=== PATIENT | male | born 1970 | race Caucasian/White ===

== ENCOUNTER 2017-05-15 13:44 | Emergency (ER) | payer OTHER ==
[2017-05-15 13:51] VITALS: TEMP 98.2
[2017-05-15] MEDS ORDERED: DEXAMETHASONE 4 MG TAB PO ONE (14:51)
--- NOTE | 2017-05-15 15:10 | EDPHY ---
General Narrative: CHIEF COMPLAINT: Right leg pain HISTORY OF PRESENT ILLNESS: Patient complains of several days history of right buttock and leg pain. This started abruptly after stretching several weeks ago. It is in the right buttock and radiates down the right leg. [id number] 1st. Now moderate to severe. Worse with stretching activity. Minimal improvement rest. Minimal improved with pain medication topical lidocaine patches. No saddle anesthesia. No incontinence of bowel or bladder. He feels as though he has not urinated enough today for the amount of water he has ingested today. No trauma or injury. He was seen by a provider at his primary care office last week. He was diagnosed with sciatica and treated with physical therapy. No other associated complaints or modifying factors. REVIEW OF SYSTEMS: Ten systems reviewed and are negative unless otherwise noted in the HPI PCP: [facility] SPECIALISTS: None PAST MEDICAL HISTORY: Psoriasis PAST SURGICAL HISTORY: Appendectomy 2016 SOCIAL HISTORY: Nonsmoker FAMILY HISTORY: Noncontributory EXAMINATION General Appearance: Alert, no distress Head: normocephalic, atraumatic Eyes: Pupils equal and round, no conjunctival pallor or injection ENT, Mouth: Mucous membranes moist Neck: Normal inspection, supple, non-tender Respiratory: No retractions or distress Cardiovascular: Regular rate. Symmetric DP pulses 2+. Symmetric PT pulses 2+. Back: Soft tissue tenderness over the right SI joint. No tenderness midline. No crepitus, step-off or deformity. Neurological: A&O, nonfocal, normal gait. Strength is 5/5 in the lower extremities involving the knees and ankles. Patellar reflexes symmetric. Normal light sensation on the dorsum of the foot. Normal proprioception of the great toes. No footdrop Skin: Warm and dry, no rash. No petechiae or purpura Extremities: Nontender, no pedal edema Psychiatric: Mood and affect normal DIFFERENTIAL DIAGNOSES: Including but not limited to sciatica, lumbar radiculopathy, DVT, muscular strain, muscle spasm, muscle cramps MDM: 2:50 p.m. Likely sciatica with no evidence of acute cord compression. Complaints of pain and paresthesia on the right leg. Examination reveals neuro intact and excellent strength. He has some mild urinary complaints, thus I have ordered a post void residual. 3:30 p.m. Patient had a postvoid residual at 270 mL per RN. I have re-evaluated the patient. We discussed this at length. While I do not have concern for acute cord compression or cauda equina at this time, I would like him to be ambulated to see if he can do so without difficulty. 3:40 p.m. Patient has ambulated in eye witnesses. He is antalgic but steady gait. Examination while standing, his hip flexors remain intact bilaterally with without weight-bearing. Strength remains symmetric in lower extremities. I did offer an MRI of the lumbar spine but he has declined. I do feel it is reasonable to discharge home with symptomatic medications with strict return to ED precautions. We discussed going home with short burst treatment with steroid , muscle relaxant and his previously prescribed pain medication. Strict ED precautions for worsening pain, numbness, tingling, weakness, incontinence of bowel or bladder, retention of bowel or bladder. He would like to attempt this plan. I would like him to return within 24-48 hours if he does not start to improve or sooner if he worsens during that timeframe. He is comfortable with this plan and discharged home stable condition - History Smoking Status: Never smoked - Objective Vital Signs: Initial Vital Signs Temperature (C) 98.2 F 05/15/17 13:48 Heart Rate 72 05/15/17 13:48 Respiratory Rate 17 05/15/17 13:48 Blood Pressure 102/81 H 05/15/17 13:48 O2 Sat (%) 93 05/15/17 13:48 O2 Delivery Mode Room Air Allergies/Adverse Reactions: erythromycin lactobionate [From Erythrocin] Allergy (Intermediate, Verified 13:46) Rash penicillin V potassium [From Pen-Vee K] Allergy (Intermediate, Verified 13:46) Rash adhesive tape Allergy (Uncoded 01/06/14 22:15) Home Medications: Medication Instructions Recorded Emtricitabine/Tenofovir [TRUVADA 1 each PO HS 10/12/12 200 MG-300 MG TABLET] Cyclobenzaprine [Flexeril 10 MG 10 mg PO TID PRN #15 tab 05/15/17 (*)] Oxycodone HCl 05/15/17 predniSONE [Deltasone] 60 mg PO DAILY #12 tablet 05/15/17 Medications Given: Discontinued Medications Dexamethasone (Decadron) 8 mg PO EDNOW ONE Stop: 05/15/17 14:52 Last Admin: 05/15/17 15:16 Dose: 8 mg Departure - Departure Disposition: Home, Routine, Self-Care Clinical Impression: Sciatica, right side Condition: Good Instructions: Sciatica (ED), Piriformis Syndrome (ED), Lower Back Exercises (ED ) Additional Instructions: 1. Continue your previously prescribed Percocet as needed as discussed 2. Flexeril 1 tablet by mouth every 8 hours as needed 3. Steroid as prescribed starting tomorrow for 4 more days 4. Strict ED precautions as discussed for worsening pain, numbness, tingling, weakness, incontinence of bowel or bladder, retention of bowel or bladder Referrals: JANNIE SANDOVAL [Other] - As per Instructions Prescriptions: Cyclobenzaprine [Flexeril 10 MG (*)] 10 mg PO TID PRN #15 tab PRN Reason: Spasms predniSONE [Deltasone] 60 mg PO DAILY #12 tablet
[2017-05-15 16:00] VITALS: BP 113/83; PULSE 67; RESP 16; O2SAT 96
== END 2017-05-15 15:58 | disposition home or self-care (01) ==
DX: M54.31 Sciatica, right side (principal)

== ENCOUNTER 2018-04-26 02:28 | Observation (INO) | payer OTHER ==
[2018-04-26] MEDS ORDERED: VANCOMYCIN HCL/NORMAL SALINE 250 ML IV ONE (02:48)
[2018-04-26] MEDS ORDERED: NS 1,000 ML IV ONE (02:48)
--- NOTE | 2018-04-26 02:50 | EDPHY ---
H & P Time Seen by Provider: 04/26/18 02:49 HPI/ROS: HPI CHIEF COMPLAINT: Worsening facial cellulitis. HISTORY OF PRESENT ILLNESS: Patient is a 48-year-old male, presents emergency room with worsening facial cellulitis. He states this initially all started on Saturday or 5 days ago with not feeling well. He had some facial redness and swelling the progressed on Saturday he went to urgent care was placed on clindamycin. Yesterday he was seen by his primary care doctor and Infectious Disease at [facility] where he typically gets care. He was placed on Augmentin and Bactrim. He has been taking this however tonight he reports that feels as if the facial swelling is getting worse. And spreading from the right-sided face to left side of his face. No pain with eye movement. Patient does report that he had blood work done as well as CT scan of his face. He is unsure exactly of the results of the CT scan. Past Medical History: High-grade dysplasia. Psoriasis. Past Surgical History: appendectomy Social History: Denies drugs alcohol tobacco. Family History: Noncontributory ROS REVIEW OF SYSTEMS: 10 Systems were reviewed and negative with the exception of the elements mentioned in the history of present illness. Exam Constitutional nontoxic appearing triage nursing summary reviewed, vital signs reviewed, awake/alert. Vital signs reviewed and stable Eyes face : Swelling mild noted around nasal bridge and periorbital bilaterally with some redness. HENT normal inspection, atraumatic, moist mucus membranes, no epistaxis, neck supple/ no meningismus, no raccoon eyes. Respiratory clear to auscultation bilaterally, normal breath sounds, no respiratory distress, no wheezing. Cardiovascular rate normal, regular rhythm, no murmur, no edema, distal pulses normal. Gastrointestinal soft, non-tender, no rebound, no guarding, normal bowel sounds, no distension, no pulsatile mass. Genitourinary no CVA tenderness. Musculoskeletal no midline vertebral tenderness, full range of motion, no calf swelling, no tenderness of extremities, no meningismus, good pulses, neurovascularly intact. Skin pink, warm, & dry, no rash, skin atraumatic. Neurologic awake, alert and oriented x 3, AAOx3, moves all 4 extremities equally, motor intact, sensory intact, CN II-XII intact, normal cerebellar, normal vision, normal speech. Psychiatric normal mood/affect. Heme/Lymph/Immune no lymphadenopathy. Differential Diagnosis: Includes but is not limited to in a particular order facial cellulitis, sepsis, bacteremia, deep space infection Medical Decision Making: Plan for this patient will try to review his outside records, IV will be established blood draw, blood cultures, lactic acid, inflammatory markers, IV vancomycin, patient need to be admitted the hospital for worsening facial cellulitis. Re-evaluation: Outside labs reviewed patient pulled these up on [place]. [place] [address], ESR was 6, CRP 123. Outside CT scan obtain CT face with IV contrast this was done yesterday at 2:30 a.m. In the afternoon. The results were faxed over To me. The final impression shows diffuse right facial and preseptal periorbital cellulitis which also extends into the frontal scalp no retrobulbar are intra her: All extension of inflammation no abscess. 0409: Spoke with the hospitalist service Dr. Sawyer agrees to admit. Patient's lab work reviewed. ESR 10 here. CRP in the 60s. Down from 123. White count 43615 down from 12,000 thousand. Source: Patient - Personal History Tetanus Vaccine Date: < 10 years - Medical/Surgical History Hx Asthma: No Hx Chronic Respiratory Disease: No Hx Diabetes: No Hx Cardiac Disease: No Hx Renal Disease: No Hx Cirrhosis: No Hx Alcoholism: No Hx HIV/AIDS: No Hx Splenectomy or Spleen Trauma: No Other PMH: HPV - Social History Smoking Status: Never smoked Constitutional: Initial Vital Signs Temperature (C) 37.2 C 04/26/18 02:49 Heart Rate 92 04/26/18 02:49 Respiratory Rate 16 04/26/18 02:49 Blood Pressure 133/88 H 04/26/18 02:49 O2 Sat (%) 91 L 04/26/18 02:49 O2 Delivery Mode Room Air Allergies/Adverse Reactions: erythromycin lactobionate [From Erythrocin] Allergy (Intermediate, Verified 13:46) Rash penicillin V potassium [From Pen-Vee K] Allergy (Intermediate, Verified 13:46) Rash adhesive tape Allergy (Uncoded 01/06/14 22:15) Home Medications: Medication Instructions Recorded Acetaminophen [Tylenol 325mg (*)] 325 - 650 mg PO Q6 PRN 04/26/18 Amoxicillin/Potassium Clav 1 each PO BID 04/26/18 [Amox-Clav 875-125 mg Tablet] Emtricitabine/Tenofovir [Truvada 1 tab PO DAILY16 04/26/18 200MG/300MG (*)] Ibuprofen [Motrin (*)] 200 - 400 mg PO Q6H PRN 04/26/18 Melatonin [Melatonin 3 MG (*)] 3 mg PO HS 04/26/18 diphenhydrAMINE [Benadryl 25 MG 25 - 50 mg PO Q6H PRN 04/26/18 (*)] Acetaminophen [Tylenol 325mg (*)] 650 mg PO Q4HRS PRN tab 04/27/18 Ibuprofen [Motrin (*)] 600 mg PO Q8HRS PRN tab 04/27/18 diphenhydrAMINE [Benadryl 25 MG 25 - 50 mg PO Q6HRS PRN cap 04/27/18 (*)] hydrOXYzine HCL [hydrOXYzine HCL 25 mg PO Q6 PRN #20 tab 04/27/18 (RX)] Medical Decision Making - Data Points Laboratory Results: Laboratory Results 04/26/18 03:11 04/26/18 03:11 Microbiology Results: MICROBIOLOGY 04/26/18 03:25 Blood Blood Culture - Preliminary 04/26/18 03:11 Blood Blood Culture - Preliminary Medications Given: Discontinued Medications Acetaminophen (Tylenol) 650 mg PO Q4HRS PRN PRN Reason: Pain, Mild/Fever, Can Take PO Stop: 10/23/18 04:37 Last Admin: 04/26/18 19:46 Dose: 650 mg Diphenhydramine HCl (Benadryl) 25 - 50 mg PO Q6HRS PRN PRN Reason: Itching Stop: 10/23/18 04:37 Last Admin: 04/26/18 21:48 Dose: 50 mg Enoxaparin Sodium (Lovenox) 40 mg SC DAILY NELL Stop: 10/23/18 08:59 Last Admin: 04/27/18 08:19 Dose: Not Given Sodium Chloride (Ns) 1,000 mls @ 0 mls/hr IV EDNOW ONE; Wide Open PRN Reason: Protocol Stop: 04/26/18 02:49 Last Admin: 04/26/18 03:25 Dose: 1,000 mls Vancomycin/Sodium Chloride (Vancomycin 1 Gm (Premix)) 250 mls @ 250 mls/hr IV EDNOW ONE PRN Reason: Protocol Stop: 04/26/18 03:47 Last Admin: 04/26/18 03:26 Dose: 250 mls Ceftriaxone Sodium 2 gm/ (Sodium Chloride) 50 mls @ 100 mls/hr IV DAILY NELL PRN Reason: Protocol Stop: 05/26/18 10:59 Last Admin: 04/27/18 08:57 Dose: 50 mls Ibuprofen (Motrin) 600 mg PO Q8HRS PRN PRN Reason: Pain, Mild/Fever, Can Take PO Stop: 10/23/18 04:37 Last Admin: 04/26/18 16:47 Dose: 600 mg Departure - Departure Disposition: [facility] Clinical Impression: Facial cellulitis Condition: Good
[2018-04-26 03:24] LABS: PLATELET COUNT 209 10^3/uL (150-400)
[2018-04-26 03:32] LABS: INR 0.96 (0.83-1.16)
[2018-04-26] MEDS ORDERED: ONDANSETRON DISINTEGRATING 4 MG TAB PO PRN (04:38)
[2018-04-26] MEDS ORDERED: HYDROCODONE/APAP 5/325 TAB PO PRN (04:38)
[2018-04-26] MEDS ORDERED: ONDANSETRON 4 MG/2 ML VIAL IVP PRN (04:38)
[2018-04-26] MEDS ORDERED: IBUPROFEN 600 MG TAB PO PRN (04:38)
[2018-04-26] MEDS ORDERED: NS 1,000 ML IV SCH (04:45)
[2018-04-26] MEDS: ACETAMINOPHEN 325 MG TAB PO PRN ×3 (08:16→19:46)
--- NOTE | 2018-04-26 08:37 | PDGENHP ---
History and Physical - Chief Complaint worsening cellulitis - History of Present Illness 48 yo male with h/o psoriasis, on Truvada for HIV pre-exposure prophylaxis, presents to ED this am with worsening facial cellulitis. He was seen in urgent care 3 days ago and started on Clindamycin. The redness and swelling surrounding his right eye worsened and he was seen by ID at [facility], yesterday. A CT scan was performed and revealed right facial and preseptal cellulitis. His antibiotics were changed to Augmentin plus Bactrim. He now feels the redness has spread to his forehead. He denies pain with ocular motion or vision changes. He c/o pain in right ear. He also notes a h/o psoriasis and believes he has a psoriatic lesion in his right nose. He had fever to 102.1 on Saturday, but no fevers since. In the ED, he was given a dose of Vancomycin and is admitted for further management. History Information - Allergies/Home Medication List Allergies/Adverse Reactions: erythromycin lactobionate [From Erythrocin] Allergy (Intermediate, Verified 13:46) Rash penicillin V potassium [From Pen-Vee K] Allergy (Intermediate, Verified 13:46) Rash adhesive tape Allergy (Uncoded 01/06/14 22:15) Home Medications: Emtricitabine/Tenofovir [TRUVADA 200 MG-300 MG TABLET] 1 each PO HS 10/12/12 [ Last Taken 07/15/15] Amoxicillin/Clavulanate Pot [Augmentin 875 MG TAB (*)] 875 mg PO BID 04/26/18 [ Last Taken Unknown] Bactrim DS 04/26/18 [Last Taken Unknown] Clindamycin 04/26/18 [Last Taken Unknown] I have personally reviewed and updated: family history, medical history, social history, surgical history - Past Medical History Additional medical history: Psoriasis. On Truvada for pre-exposure prophylaxis - Surgical History Reports: no pertinent surgical hx - Family History Positive for: non-pertinent - Social History Smoking Status: Never smoked Drug Use: None Additional social history: Ramirez male, on PREP with truvada Review of Systems Review of Systems: ROS: 10pt was reviewed & negative except for what was stated in HPI & below Physical Exam Physical Exam: Temp Pulse Resp BP Pulse Ox 36.8 C 78 16 129/77 H 91 L 11/03/18 08:18 04/26/18 08:18 04/26/18 08:18 04/26/18 08:18 04/26/18 08:18 Constitutional: no apparent distress Eyes: PERRL, other (no pain with ocular motion) Ears, Nose, Mouth, Throat: moist mucous membranes, other (+right periorbital erythema and edema with spread to lower forehead / nasal bridge) Cardiovascular: regular rate and rhythym Respiratory: no respiratory distress, clear to auscultation Gastrointestinal: normoactive bowel sounds, soft, non-tender abdomen Skin: warm Musculoskeletal: full muscle strength Neurologic: AAOx3 Psychiatric: interacting appropriately Lab Data & Imaging Review 04/26/18 03:11 04/26/18 03:11 WBC 11.39 10^3/uL (3.80-9.50) H 04/26/18 03:11 RBC 4.03 10^6/uL (4.40-6.38) L 04/26/18 03:11 Hgb 12.7 g/dL (13.7-17.5) L 04/26/18 03:11 Hct 36.7 % (40.0-51.0) L 04/26/18 03:11 MCV 91.1 fL (81.5-99.8) 04/26/18 03:11 MCH 31.5 pg (27.9-34.1) 04/26/18 03:11 MCHC 34.6 g/dL (32.4-36.7) 04/26/18 03:11 RDW 13.0 % (11.5-15.2) 04/26/18 03:11 Plt Count 209 10^3/uL (150-400) 04/26/18 03:11 MPV 8.9 fL (8.7-11.7) 04/26/18 03:11 Neut % (Auto) 69.4 % (39.3-74.2) 04/26/18 03:11 Lymph % (Auto) 20.5 % (15.0-45.0) 04/26/18 03:11 [place] % (Auto) 7.9 % (4.5-13.0) 04/26/18 03:11 Eos % (Auto) 1.5 % (0.6-7.6) 04/26/18 03:11 Baso % (Auto) 0.4 % (0.3-1.7) 04/26/18 03:11 Nucleat RBC Rel Count 0.0 % (0.0-0.2) 04/26/18 03:11 Absolute Neuts (auto) 7.90 10^3/uL (1.70-6.50) H 04/26/18 03:11 Absolute Lymphs (auto) 2.34 10^3/uL (1.00-3.00) 04/26/18 03:11 Absolute Monos (auto) 0.90 10^3/uL (0.30-0.80) H 04/26/18 03:11 Absolute Eos (auto) 0.17 10^3/uL (0.03-0.40) 04/26/18 03:11 Absolute Basos (auto) 0.05 10^3/uL (0.02-0.10) 04/26/18 03:11 Absolute Nucleated RBC 0.00 10^3/uL (0-0.01) 04/26/18 03:11 Immature Gran % 0.3 % (0.0-1.1) 04/26/18 03:11 Immature Gran # 0.03 10^3/uL (0.00-0.10) 04/26/18 03:11 ESR 12 MM/HR (0-15) 04/26/18 03:11 PT 13.0 SEC (12.0-15.0) 04/26/18 03:11 INR 0.96 (0.83-1.16) 04/26/18 03:11 APTT 31.5 SEC (23.0-38.0) 04/26/18 03:11 VBG Lactic Acid 0.9 mmol/L (0.7-2.1) 04/26/18 03:11 Sodium 140 mEq/L (135-145) 04/26/18 03:11 Potassium 3.5 mEq/L (3.3-5.0) 04/26/18 03:11 Chloride 106 mEq/L (97-110) 04/26/18 03:11 Carbon Dioxide 24 mEq/l (22-31) 04/26/18 03:11 Anion Gap 10 mEq/L (6-14) 04/26/18 03:11 BUN 6 mg/dL (7-23) L 04/26/18 03:11 Creatinine 1.1 mg/dL (0.7-1.3) 04/26/18 03:11 Estimated GFR > 60 04/26/18 03:11 Glucose 106 mg/dL (70-100) H 04/26/18 03:11 Calcium 9.2 mg/dL (8.5-10.4) 04/26/18 03:11 C-Reactive Protein 67.6 mg/L (<10.0) H 04/26/18 03:11 Assessment & Plan Assessment: Vero-orbital cellulitis - has had 6 doses of oral atbx over past 3 days ( clindamycin, then augmentin/bactrim) with worsening erythema and swelling. No more fevers, elevated wbc's, but no sepsis physiology. CT from yest showed pre- septal cellulitis, no orbital involvement. -Cont vanc -BCx's pending -ID consult Psoriasis - may be source of above with reported nasal lesion Pre-exposure prophylaxis with Truvada Full code Dispo - obs
[2018-04-26] MEDS: ENOXAPARIN 40 MG/0.4 ML SYR SC SCH (10:20)
--- NOTE | 2018-04-26 12:00 | GCON ---
DATE OF CONSULTATION: 04/26/2018 REFERRING PHYSICIAN: Tori Lantigua MD REASON FOR CONSULTATION: Facial cellulitis. HISTORY OF PRESENT ILLNESS: A 48-year-old male who was in his usual state of health until April 21, when he developed right jaw pain, rhinorrhea, sneezing , and subsequently developed a fever to 102 on April 23, at which time he presented to the urgent care and his temperature was 102.5. At urgent care, the patient was started on clindamycin initially. Initially, he had a spot of erythema on the left nasolabial fold and this spread to the right nasolabial fold. Due to progression, patient was seen by his providers that typically take care of him at the [facility], including his primary care, and he was started on Augmentin and Bactrim. CT was performed there that by report just showed preseptal cellulitis, records not available at time of exam. The patient took 2 doses of Augmentin and Bactrim, and noticed that the erythema had spread to his forehead, and presented to [facility] for further evaluation. He describes the area of redness as mildly painful, but also describes significant pruritus. Since his fever to 102.5 on Saturday, he has only had low-grade fevers. He denies any new medications. He denies any recent dental work, although he needs to get 2 crowns. He has no dental pain. He denies any internal ear pain, but his right ear is painful related to above described process. No pain with movement of his eyes. He does note that he may have had some right nostril trauma preceding onset of this illness, and was exposed to someone who had known group A strep. These 2 things were somewhat simultaneous. The patient was started in the emergency room on IV vancomycin and ID is asked to consult to further direct antibiotic therapy. PAST MEDICAL HISTORY: High-grade lesions rectal associated with HPV. He is treated at the Infectious Disease Clinic at [facility]. Remote history of syphilis. PAST SURGICAL HISTORY: None significant. SOCIAL HISTORY: MSM, the patient is taking prep for many years ago. The patient last tested for HIV 2 weeks ago at [facility] and was negative. 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 No IV drug use. FAMILY HISTORY: His father has diabetes. His mother has non-Hodgkin's lymphoma. ALLERGIES: In 2016, patient was thought to possibly have a reaction to penicillin, but ended up being Jarisch-Herxheimer reaction. MEDICATIONS: Melatonin, as an outpatient was on Bactrim 1 tab twice daily. He is on Trovato 1 tablet daily, and he was on Augmentin 875 1 p.o. twice daily. Since admission, he was started on vancomycin 1 g q.12. REVIEW OF SYSTEMS: A complete 10-point review of systems was performed and is negative except as mentioned in the HPI. PHYSICAL EXAM: VITAL SIGNS: BP 129/77, HR 78, RR 16, saturation 91% on room air, T 36.8. GENERAL: This is a nontoxic-appearing male, sitting up in bed, conversational. HEENT: Obvious raised erythema with distinct borders on the right nasolabial fold and cheek, mid forehead, and a bit on the left nasolabial fold near his eye, with a somewhat honey colored crust. No crepitus was appreciated. Cranial nerves were intact, including extraocular muscles. No obvious dental caries. No oral ulcerations or exudates. NECK: Neck was supple. CARDIOVASCULAR: Regular rate, no murmurs. CHEST: Clear to auscultation bilaterally. ABDOMEN: Soft, nontender. EXTREMITIES: No clubbing , cyanosis, or edema. SKIN: Other than what is described on HEENT exam, patient had patches scattered on his upper extremities consistent with psoriasis. He also had multiple skin cracks. LAB: White count 11.3, hematocrit 36, platelets of 209, 69% neutrophils, 20% lymphocytes. Creatinine 1.1. CRP 6.7. Blood cultures 04/26 pending. ASSESSMENT AND PLAN: This is a 48-year-old male who, after trauma to his right naris, developed right facial erysipelas that progressed while on oral antibiotics. I do not think that the spectrum of the antibiotics was inappropriate, just that disease needed higher dose therapy to lead to improvement. The patient has no history of MRSA, and with predominant erysipelas appearance, Streptococcus is the leading etiology. Further, with recent exposure to someone with strep, this makes this more likely. 1. Discontinue vancomycin. 2. Screen for MRSA, although this may be falsely negative due to prior therapy with IV Bactrim and vancomycin. 3. Will adjust antibiotics to ceftriaxone 2 g IV daily with the hopes of discharge tomorrow. If he does need ongoing IV therapy, he could seek care in our infusion center. This was reviewed with the patient at the bedside. Time was 85 minutes, greater than 50% of time spent in education and counseling regarding the pathogenesis of facial infections and origin of the infection, as well as antibiotic spectrum of activity and therapy. /[id number]/MODL MTDD
--- NOTE | 2018-04-26 14:30 | ASMTCMCOM ---
CM Note CM Note Notes: Reviewed chart, pt admitted for facial cellulitis. He is on IV abx, dc needs unclear but normally independent, CM w/f. DC Plan: TBD Date Signed: 04/26/2018 02:29 PM Electronically Signed By:Pushpa Hunt RN
[2018-04-26] MEDS ORDERED: VANCOMYCIN HCL/NORMAL SALINE 250 ML IV SCH (15:00)
[2018-04-26] MEDS: diphenhydrAMINE 25 MG CAP PO PRN ×2 (16:00→21:48)
[2018-04-27 04:31] LABS: PLATELET COUNT 194 10^3/uL (150-400)
[2018-04-27] MEDS: ENOXAPARIN 40 MG/0.4 ML SYR SC SCH (08:19)
[2018-04-27 09:58] VITALS: BP 113/76
--- NOTE | 2018-04-27 13:46 | PCMIDPN ---
Assessment/Plan: Assessment/Plan: * Facial cellulitis: Clinical findings consistent with erysipelas. Clinically improved with ceftriaxone suggesting most likely pathogen is beta-hemolytic streptococci (also has activity against MSSA). Nasal swab to assess for MRSA colonization is pending. Blood cultures remain no growth to date. Given clinical improvement, will transition to oral Augmentin to complete 7 additional days of antibiotic therapy. Will continue to follow culture results post discharge. Patient advised to notify our office if he develops recurrent fever, worsening erythema, or swelling. 04/27/18 13:43 Subjective: Patient feels significantly improved. Plans a facial pruritis at areas of cellulitis were desquamation has started. Objective: Vital Signs Temp Pulse Resp BP Pulse Ox 36.7 C 62 16 113/76 92 04/27/18 08:00 04/27/18 08:00 04/27/18 04:03 04/27/18 08:00 04/27/18 08:00 Laboratory Results 04/27/18 03:59 04/26/18 04/27/18 04/28/18 06:59 05:59 05:59 Intake Total Balance ESR 12 MM/HR (0-15) 04/26/18 03:11 C-Reactive Protein 34.1 mg/L (<10.0) H 04/27/18 03:59 Ceftriaxone # 2 Blood cultures x2 no growth MRSA nasal screen pending - Physical Exam General Appearance: alert, no apparent distress, non-toxic EENT: other (Facial erythema over bilateral cheeks and forehead significantly decreased (when compared to photos patient has) with some desquamation of skin in all areas; mild warmth without significant tenderness), No thrush Neck: supple, other (No tenderness) Cardiac/Chest: regular rate, rhythm, No systolic murmur Lymphatic: no adenopathy (Submandibular or neck) ICD10 Worksheet Patient Problems: Problems Problem Status Onset Facial cellulitis Acute Allergic reaction Acute Fever Acute Jarisch Herxheimer reaction Acute
--- NOTE | 2018-04-27 13:58 | ASMTLACE ---
JEANNIEE Length of stay for Answers: 1 day current admission Comorbidities - select Answers: Other Notes: HPV all that apply # of Emergency department Answers: 1-2 visits in the last 6 months Score: 3 Date Signed: 04/27/2018 01:57 PM Electronically Signed By:Milla Winslow RN
--- NOTE | 2018-04-27 14:01 | ASMTCMCOM ---
CM Note CM Note Notes: Patient reviewed in rounds. Seen by ID for consultation. Patient is medically cleared for discharge on oral anitbiotics at this time. No needs identified. CM available should needs arise. Plan: dc to home independent. Date Signed: 04/27/2018 02:00 PM Electronically Signed By:Milla Winslow RN
--- NOTE | 2018-05-01 13:27 | GDS ---
SERVICE: [facility] hospitalist. CONSULT: Infectious Disease. PROCEDURES: None. HISTORY AND PHYSICAL: Please see previously dictated note by Dr. Lantigua. ADMISSION DIAGNOSES: 1. Facial cellulitis/erysipelas. 2. Psoriasis. DISCHARGE DIAGNOSES: 1. Facial cellulitis/erysipelas. 2. Psoriasis. HOSPITAL COURSE: The patient came into the emergency department after noting worsening periorbital c ellulitis/erysipelas. He had already been seen for this by his primary health team and had been put on clindamycin and then Augmentin and Bactrim, but his symptoms worsened. He had a CT scan done prio r to admission that showed preseptal cellulitis with no orbital involvement, and he was admitted for blood cultures and IV antibiotics. He was initially started on vancomycin, but this was discontinued by Infectious Diseases. He was screened for MRSA with nasopharyngeal swab and started on ceftriaxon e 2 g IV daily. The following morning/day of discharge, his facial cellulitis was improved, his whit e blood cell count had trended significantly down, and he had been afebrile. He felt better, and aft er discussion with Infectious Disease, he felt comfortable discharging to home to continue with oral Augmentin. He did have a blood culture, which was negative at 36 hours, and MRSA culture, which was pending and will need to be followed up as an outpatient. DISCHARGE MEDICATIONS: He was asked to continue all of his routine chronic home medications, but macrina d to discontinue Bactrim and continue with the amoxicillin clavulanic acid 875/125, 1 tab p.o. twice daily that he had been given by his previous provider. This should continue for at least a week. He will continue with Truvada, melatonin, ibuprofen, Advil, ibuprofen, and Tylenol as needed. He was a lso given a prescription for hydroxyzine to take orally, and he can take Benadryl as needed for itchi ng. He was advised to keep his face clean and dry. He can use a thick emollient from a new containe r to cover dry patches if needed. If at any time he has return of fever, spreading or worsening redn ess, or crusting of the areas, he should return immediately to re-evaluate. Otherwise, he has been i nstructed to see his primary care provider, Dr. Thierno Cruz, within the next week ([facility] physician). Dr. Ordoñez of Infectious Disease also agreed to see the patient locally if needed in the clinic. /[id number]/MODL
== END 2018-04-27 14:31 | disposition home or self-care (01) ==
LOC: F1N 08:12
PROVIDERS: ADMIT Family Medicine; ATTEND Family Medicine
DX: L03.211 Cellulitis of face (principal); L03.213 Periorbital cellulitis; T36.95XA Adverse effect of unspecified systemic antibiotic, initial encounter; L40.9 Psoriasis, unspecified; E86.9 Volume depletion, unspecified
CPT/HCPCS: 96365; 96375; 96376; 99285; G0378; J0696; J1650; J3370